=== PATIENT | male | born 1985 | race American Indian/Alaskan Native ===

== ENCOUNTER 2019-09-19 05:44 | Emergency (ER) | payer SELFPAY ==
[2019-09-19] MEDS ORDERED: ACETAMINOPHEN 325 MG TAB ONE (05:49)
[2019-09-19] MEDS ORDERED: ACETAMINOPHEN 325 MG TAB PO ONE (05:51)
--- NOTE | 2019-09-19 08:24 | Emergency Department Report ---
{null, - General Chief Complaint: Upper Respiratory Infection Stated Complaint: BODYACHE Time Seen by Provider: 09/19/19 07:41 Source: patient Mode of arrival: Ambulatory Limitations: No Limitations - History of Present Illness Initial Comments: 33-year-old -Greek male patient without significant past medical history presents with complaints of cough, congestion, runny nose, and generalized body aches/chills x yesterday. He states cough is productive of clear/white sputum. He denies any shortness of breath, chest pain, hemoptysis, brown sputum, history of smoking/asthma, diarrhea, or nausea/vomiting. He denies trying any [id number] medications for symptoms or known sick contacts. -: Sudden Consistency: constant Worsens With: nothing Associated Symptoms: fever, chills, myalgias, rhinorrhea, cough. denies: headache, sore throat, stiff neck, shortness of breath, abdominal pain, nausea, vomiting, diarrhea, rash - Related Data Previous Rx's Medication Instructions Recorded Last Taken Type Benzonatate 200 mg PO TID PRN #25 capsule 09/19/19 Unknown Rx Ibuprofen [Motrin 800 MG tab] 800 mg PO Q8HR PRN #21 tablet 09/19/19 Unknown Rx Oseltamivir [Tamiflu] 75 mg PO BID 5 Days #10 cap 09/19/19 Unknown Rx Allergies Allergy/AdvReac Type Severity Reaction Status Date / Time No Known Allergies Allergy Verified 09/19/19 05:50 ED Review of Systems ROS: Stated complaint: BODYACHE Other details as noted in HPI Constitutional: chills, fever, malaise Eyes: denies: vision change ENT: denies: throat pain Respiratory: cough. denies: shortness of breath Cardiovascular: denies: chest pain Endocrine: denies: excessive sweating Gastrointestinal: denies: abdominal pain, nausea, vomiting, diarrhea, constipation Genitourinary: denies: dysuria, frequency, hematuria Musculoskeletal: denies: back pain Skin: denies: rash, lesions, change in color Neurological: denies: headache, weakness, numbness, paresthesias ED Past Medical Hx - Past Medical History Previous Medical History?: No - Surgical History Past Surgical History?: No - Social History Smoking Status: Never Smoker Substance Use Type: None - Medications Home Medications: Home Medications Medication Instructions Recorded Confirmed Last Taken Type Benzonatate 200 mg PO TID PRN #25 capsule 09/19/19 Unknown Rx Ibuprofen [Motrin 800 MG tab] 800 mg PO Q8HR PRN #21 tablet 09/19/19 Unknown Rx Oseltamivir [Tamiflu] 75 mg PO BID 5 Days #10 cap 09/19/19 Unknown Rx ED Physical Exam - General Limitations: No Limitations General appearance: alert, in no apparent distress - Head Head exam: Present: atraumatic, normocephalic - Eye Eye exam: Present: normal appearance - ENT ENT exam: Present: normal exam, mucous membranes moist - Neck Neck exam: Present: normal inspection - Respiratory Respiratory exam: Present: normal lung sounds bilaterally. Absent: respiratory distress, wheezes, rales, rhonchi, chest wall tenderness, accessory muscle use, decreased breath sounds - Cardiovascular Cardiovascular Exam: Present: regular rate, normal rhythm. Absent: systolic murmur, diastolic murmur, rubs, gallop - GI/Abdominal GI/Abdominal exam: Present: soft. Absent: distended, tenderness - Extremities Exam Extremities exam: Present: normal inspection - Back Exam Back exam: Present: normal inspection - Neurological Exam Neurological exam: Present: alert, oriented X3 - Psychiatric Psychiatric exam: Present: normal affect, normal mood - Skin Skin exam: Present: warm, dry, intact, normal color. Absent: rash ED Course Vital Signs 09/19/19 09/19/19 05:50 08:36 Temperature 100.4 F H Pulse Rate 88 85 Respiratory 18 Rate Blood Pressure 144/93 Blood Pressure 135/92 [Right] O2 Sat by Pulse 95 96 Oximetry ED Medical Decision Making - Lab Data Lab Results 09/19/19 Range/Units Unknown Influenza A (Rapid) Positive A (Negative) Influenza B (Rapid) Negative (Negative) - Medical Decision Making 33-year-old male presents with flulike symptoms starting yesterday. Physical exam is negative for acute findings and his lungs are clear to auscultation bilaterally. Initial temperature upon arrival was 100.4 and is now 98.2. After receiving 650 mg of Tylenol. His rapid flu test is positive for Flu A. Patient is nontoxic-appearing and stable for discharge home. Tamiflu prescription given. Recommend follow-up with primary care provider within 5 to 7 days. Discussed detailed return precautions with patient who verbalizes understanding. Critical care attestation.: If time is entered above; I have spent that time in minutes in the direct care of this critically ill patient, excluding procedure time. ED Disposition Clinical Impression: Influenza A Disposition: DC-01 TO HOME OR SELFCARE Is pt being admited?: No Condition: Stable Instructions: Influenza (ED) Prescriptions: Benzonatate 200 mg PO TID PRN #25 capsule PRN Reason: Cough Ibuprofen [Motrin 800 MG tab] 800 mg PO Q8HR PRN #21 tablet PRN Reason: fever/bodyaches Oseltamivir [Tamiflu] 75 mg PO BID 5 Days #10 cap Referrals: [facility] [Provider Group] - 7-10 days Forms: Work/School Release Form(ED) }
[2019-09-19 08:37] VITALS: BP 144/93
== END 2019-09-19 08:38 | disposition home or self-care (01) ==
LOC: ED 05:44
DX: J10.1 Influenza due to other identified influenza virus with other respiratory manifestations (principal); Z79.1 Long term (current) use of non-steroidal anti-inflammatories (NSAID); Z79.899 Other long term (current) drug therapy
CPT/HCPCS: 87400

== ENCOUNTER 2020-08-07 17:12 | Emergency (ER) | payer BC ==
[2020-08-07 17:20] VITALS: BP 136/89
[2020-08-07] MEDS ORDERED: IBUPROFEN 600 MG TAB PO ONE (17:28)
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
== END 2020-08-07 18:40 | disposition home or self-care (01) ==
LOC: ED 17:12
DX: Z79.1 Long term (current) use of non-steroidal anti-inflammatories (NSAID) (principal); S93.602A Unspecified sprain of left foot, initial encounter; Z79.899 Other long term (current) drug therapy; S39.012A Strain of muscle, fascia and tendon of lower back, initial encounter; V49.49XA Driver injured in collision with other motor vehicles in traffic accident, initial encounter; Y93.89 Activity, other specified; Y92.410 Unspecified street and highway as the place of occurrence of the external cause; Y99.8 Other external cause status
CPT/HCPCS: 72100

== ENCOUNTER 2021-02-20 08:18 | Emergency (ER) | payer BC, OTHER ==
[2021-02-20 08:53] LABS: Eosinophils % (Auto) 0.1 % (0.0-4.3); Hematocrit 49.7 % (35.5-45.6); Hemoglobin 17.2 gm/dl (11.8-15.2); Lymphocytes # (Auto) 1.2 K/mm3 (1.2-5.4); Lymphocytes % (Auto) 25.9 % (13.4-35.0); Mean Corpuscular HGB Conc 35 % (32-34); Mean Corpuscular Volume 85 fl (84-94); Monocytes # (Auto) 0.6 K/mm3 (0.0-0.8); Red Blood Count 5.82 M/mm3 (3.65-5.03); Red Cell Distribution Width 13.6 % (13.2-15.2)
[2021-02-20] MEDS ORDERED: LACTATED RINGERS 1,000 ML IV ONE (09:03)
[2021-02-20] MEDS ORDERED: MORPHINE 4 MG/1 ML INJ IV ONE (09:03)
--- NOTE | 2021-02-20 09:07 | Emergency Department Report ---
ED General Adult HPI - General Chief complaint: Abdominal Pain Stated complaint: abd pains Time Seen by Provider: 02/20/21 09:02 Source: patient Mode of arrival: Ambulatory Limitations: No Limitations - History of Present Illness Initial comments: 35-year-old male without significant past medical history presenting for evaluation of lower abdominal pain gradual onset over the past week associated with nausea and vomiting. Also reports some diarrhea. Denies fever. No prior history of similar symptoms. Pain seems to be worse below the umbilicus. Rates it as moderate to severe nothing makes it better or worse. Severity scale (0 -10): 10 - Related Data Previous Rx's Medication Instructions Recorded Last Taken Type Ibuprofen [Motrin 800 MG tab] 800 mg PO Q8HR PRN #21 tablet 08/07/20 Unknown Rx methOCARBAMOL [Robaxin TAB] 750 mg PO Q8H PRN #30 tablet 08/07/20 Unknown Rx DOXYCYCLINE Hyclate [Vibramycin 100 mg PO Q12HR #20 capsule 02/20/21 Unknown Rx CAP] Hyoscyamine Subl [Levsin Sl 0.125 0.125 mg SL Q6HR PRN #20 tab 02/20/21 Unknown Rx TAB] Promethazine [Phenergan] 25 mg PO Q6HR PRN #20 tab 02/20/21 Unknown Rx Allergies Allergy/AdvReac Type Severity Reaction Status Date / Time No Known Allergies Allergy Verified 08/07/20 17:17 ED Review of Systems ROS: Stated complaint: abd pains Other details as noted in HPI Comment: All other systems reviewed and negative Gastrointestinal: as per HPI ED Past Medical Hx - Past Medical History Previous Medical History?: No - Surgical History Past Surgical History?: No - Social History Smoking Status: Never Smoker Substance Use Type: None - Medications Home Medications: Home Medications Medication Instructions Recorded Confirmed Last Taken Type Ibuprofen [Motrin 800 MG tab] 800 mg PO Q8HR PRN #21 tablet 08/07/20 Unknown Rx methOCARBAMOL [Robaxin TAB] 750 mg PO Q8H PRN #30 tablet 08/07/20 Unknown Rx DOXYCYCLINE Hyclate [Vibramycin 100 mg PO Q12HR #20 capsule 02/20/21 Unknown Rx CAP] Hyoscyamine Subl [Levsin Sl 0.125 0.125 mg SL Q6HR PRN #20 tab 02/20/21 Unknown Rx TAB] Promethazine [Phenergan] 25 mg PO Q6HR PRN #20 tab 02/20/21 Unknown Rx ED Physical Exam - General Limitations: No Limitations General appearance: alert, in no apparent distress - Head Head exam: Present: atraumatic, normocephalic - Eye Eye exam: Present: normal appearance - ENT ENT exam: Present: mucous membranes moist - Neck Neck exam: Present: normal inspection - Respiratory Respiratory exam: Present: normal lung sounds bilaterally. Absent: respiratory distress - Cardiovascular Cardiovascular Exam: Present: regular rate, normal rhythm. Absent: systolic murmur, diastolic murmur, rubs, gallop - GI/Abdominal GI/Abdominal exam: Present: soft, tenderness (Right lower left lower quadrants and periumbilical region), normal bowel sounds. Absent: guarding, rebound - Rectal Rectal exam: Present: deferred - Extremities Exam Extremities exam: Present: normal inspection - Back Exam Back exam: Present: normal inspection - Neurological Exam Neurological exam: Present: alert, oriented X3 - Psychiatric Psychiatric exam: Present: normal affect, normal mood - Skin Skin exam: Present: warm, dry, intact, normal color. Absent: rash ED Course Vital Signs 02/20/21 02/20/21 08:23 09:31 Temperature 99.3 F Pulse Rate 88 Respiratory 18 16 Rate Blood Pressure 116/80 [Right] O2 Sat by Pulse 98 Oximetry ED Medical Decision Making - Lab Data Result diagrams: 02/20/21 08:33 02/20/21 08:33 - Radiology Data Radiology results: report reviewed No acute process within the abdomen or pelvis on CT scan however there is multifocal pneumonia in the lung bases - Medical Decision Making Patient presents for evaluation of lower abdominal pain over the past week associate with nausea vomiting and diarrhea. On my exam well-appearing nontoxic no distress normal heart and lungs, lower abdominal tenderness diffusely. Differentials include colitis diverticulitis appendicitis. Labs and CT will be obtained. Patient given morphine Zofran and IV fluids. Labs are fairly stable, CT shows no acute process in the abdomen but does suggest multifocal pneumonia, on further questioning the patient does admit to having a lot of coughing over the past few days. Query COVID-19. Recommend getting tested outpatient, isolating is appropriate and will prescribe antibiotics to cover for community-acquired pneumonia. Return precautions given. Vital signs stable today with O2 98% on room air. - Differential Diagnosis Colitis diverticulitis appendicitis Critical care attestation.: If time is entered above; I have spent that time in minutes in the direct care of this critically ill patient, excluding procedure time. ED Disposition Clinical Impression: Multifocal pneumonia Disposition: - TO HOME OR SELFCARE Is pt being admited?: No Condition: Good Instructions: Bacterial Pneumonia (ED), Community-Acquired Pneumonia, Adult Prescriptions: Hyoscyamine Subl [Levsin Sl 0.125 TAB] 0.125 mg SL Q6HR PRN #20 tab PRN Reason: abd cramps Promethazine [Phenergan] 25 mg PO Q6HR PRN #20 tab PRN Reason: Nausea DOXYCYCLINE Hyclate [Vibramycin CAP] 100 mg PO Q12HR #20 capsule Referrals: PRIMARY CARE, [Primary Care Provider] - 3-5 Days Time of Disposition: 11:49
[2021-02-20 09:08] LABS: Platelet Count 97 K/mm3 (140-440)
[2021-02-20 09:20] LABS: Alanine Aminotransferase 70 units/L (7-56); Albumin 4.1 g/dL (3.9-5); BUN/Creatinine Ratio 10; Blood Urea Nitrogen 10 mg/dL (9-20); Calcium 9.2 mg/dL (8.4-10.2); Hemolysis Index 5
[2021-02-20 09:29] LABS: Bacteria,Urine 1+ /HPF (Negative); Bilirubin,Urine NEG (Negative); Blood,Urine MOD (Negative); Color,Urine Amber (Yellow); Mucus,Urine 1+ /HPF; Urobilinogen,Urine < 2.0 mg/dL (<2.0)
[2021-02-20] MEDS: ONDANSETRON 4 MG/2 ML INJ IV ONE (09:31)
--- NOTE | 2021-02-20 11:40 | Cat Scan Report ---
CT abdomen pelvis w con INDICATION / CLINICAL INFORMATION: LLQ, RLQ pain. TECHNIQUE: Axial CT images were obtained through the abdomen and pelvis after IV contrast. All CT sc ans at this location are performed using CT dose reduction for ALARA by means of automated exposure c ontrol. COMPARISON: None available. FINDINGS: LOWER CHEST: Multifocal patchy areas of airspace consolidation within the lung bases. LIVER: No significant abnormality GALLBLADDER/BILIARY TREE: No significant abnormality PANCREAS: No significant abnormality SPLEEN: No significant abnormality ADRENALS: No significant abnormality KIDNEYS / URETER: No significant abnormality URINARY BLADDER: No significant abnormality REPRODUCTIVE ORGANS: No significant abnormality STOMACH / BOWEL: No significant abnormality. The appendix is normal in caliber. LYMPH NODES: No significant adenopathy. VASCULATURE: No significant abnormality. OTHER: No free air, free fluid, or focal fluid collection is identified. SKELETAL SYSTEM: Multilevel thoracolumbar spondylosis. No acute osseous abnormality. IMPRESSION: 1. Multifocal patchy airspace disease within the lungs, most consistent with pneumonia. 2. No acute abnormality of the abdomen or pelvis. Signer Name: Doug Razo MD Signed: 02/20/2021 11:35 AM Workstation Name: [id number]
[2021-02-20] MEDS ORDERED: HYOSCYAMINE SUBL 0.125 MG TAB SL ONE (11:50)
[2021-02-20 12:11] VITALS: BP 119/79
== END 2021-02-20 12:20 | disposition home or self-care (01) ==
LOC: ED 08:18
DX: J18.9 Pneumonia, unspecified organism (principal); R11.2 Nausea with vomiting, unspecified; R19.7 Diarrhea, unspecified
CPT/HCPCS: 36415; 74177; 80053; 81001; 83690; 85025; 96361; 96374; 96375; 99284; J2270; J2405; J7120; Q9967

== ENCOUNTER 2021-04-08 18:41 | Emergency (ER) | payer BC ==
[2021-04-08 19:35] VITALS: BP 137/87
--- NOTE | 2021-04-08 20:05 | Emergency Department Report ---
- General Chief complaint: Skin/Abscess/Foreign Body Stated complaint: BOIL UNDER ARMS Time Seen by Provider: 04/08/21 19:59 Source: patient Mode of arrival: Ambulatory Limitations: No Limitations - History of Present Illness Initial comments: Patient is a 35-year-old male presents emergency room with complaints of abscesses to the bilateral axilla that began approximately 1 to 2 weeks ago. Patient states that last month he had to have an I&D performed. He states that they have been draining. He denies any fever, chills, nausea, vomiting, diarrhea, numbness, weakness. Patient denies any past medical history. No allergies to medications. - Related Data Previous Rx's Medication Instructions Recorded Last Taken Type Ibuprofen [Motrin 800 MG tab] 800 mg PO Q8HR PRN #21 tablet 08/07/20 Unknown Rx methOCARBAMOL [Robaxin TAB] 750 mg PO Q8H PRN #30 tablet 08/07/20 Unknown Rx DOXYCYCLINE Hyclate [Vibramycin 100 mg PO Q12HR #20 capsule 02/20/21 Unknown Rx CAP] Hyoscyamine Subl [Levsin Sl 0.125 0.125 mg SL Q6HR PRN #20 tab 02/20/21 Unknown Rx TAB] Promethazine [Phenergan] 25 mg PO Q6HR PRN #20 tab 02/20/21 Unknown Rx Chlorhexidine Gluconate [Hibiclens] 15 ml TP DAILY #1 bottle 04/08/21 Unknown Rx Mupirocin [Bactroban 2% OINT] 1 applic TP TID #1 tube 04/08/21 Unknown Rx Sulfamethoxazole/Trimethoprim 1 each PO BID 7 Days #14 tablet 04/08/21 Unknown Rx [Bactrim DS TAB] Allergies Allergy/AdvReac Type Severity Reaction Status Date / Time No Known Allergies Allergy Verified 08/07/20 17:17 Abscess Boil HPI - HPI Chief Complaint: Skin/Abscess/Foreign Body Stated Complaint: BOIL UNDER ARMS Time Seen by Provider: 04/08/21 19:59 Home Medications: Previous Rx's Medication Instructions Recorded Last Taken Type Ibuprofen [Motrin 800 MG tab] 800 mg PO Q8HR PRN #21 tablet 08/07/20 Unknown Rx methOCARBAMOL [Robaxin TAB] 750 mg PO Q8H PRN #30 tablet 08/07/20 Unknown Rx DOXYCYCLINE Hyclate [Vibramycin 100 mg PO Q12HR #20 capsule 02/20/21 Unknown Rx CAP] Hyoscyamine Subl [Levsin Sl 0.125 0.125 mg SL Q6HR PRN #20 tab 02/20/21 Unknown Rx TAB] Promethazine [Phenergan] 25 mg PO Q6HR PRN #20 tab 02/20/21 Unknown Rx Chlorhexidine Gluconate [Hibiclens] 15 ml TP DAILY #1 bottle 04/08/21 Unknown Rx Mupirocin [Bactroban 2% OINT] 1 applic TP TID #1 tube 04/08/21 Unknown Rx Sulfamethoxazole/Trimethoprim 1 each PO BID 7 Days #14 tablet 04/08/21 Unknown Rx [Bactrim DS TAB] Allergies/Adverse Reactions: Allergies Allergy/AdvReac Type Severity Reaction Status Date / Time No Known Allergies Allergy Verified 08/07/20 17:17 ED Review of Systems ROS: Stated complaint: BOIL UNDER ARMS Other details as noted in HPI Comment: All other systems reviewed and negative ED Past Medical Hx - Past Medical History Previous Medical History?: No - Surgical History Past Surgical History?: No - Social History Smoking Status: Never Smoker Substance Use Type: None - Medications Home Medications: Home Medications Medication Instructions Recorded Confirmed Last Taken Type Ibuprofen [Motrin 800 MG tab] 800 mg PO Q8HR PRN #21 tablet 08/07/20 Unknown Rx methOCARBAMOL [Robaxin TAB] 750 mg PO Q8H PRN #30 tablet 08/07/20 Unknown Rx DOXYCYCLINE Hyclate [Vibramycin 100 mg PO Q12HR #20 capsule 02/20/21 Unknown Rx CAP] Hyoscyamine Subl [Levsin Sl 0.125 0.125 mg SL Q6HR PRN #20 tab 02/20/21 Unknown Rx TAB] Promethazine [Phenergan] 25 mg PO Q6HR PRN #20 tab 02/20/21 Unknown Rx Chlorhexidine Gluconate [Hibiclens] 15 ml TP DAILY #1 bottle 04/08/21 Unknown Rx Mupirocin [Bactroban 2% OINT] 1 applic TP TID #1 tube 04/08/21 Unknown Rx Sulfamethoxazole/Trimethoprim 1 each PO BID 7 Days #14 tablet 04/08/21 Unknown Rx [Bactrim DS TAB] ED Physical Exam - General Limitations: No Limitations General appearance: alert, in no apparent distress - Head Head exam: Present: atraumatic, normocephalic - Eye Eye exam: Present: normal appearance - ENT ENT exam: Present: mucous membranes moist - Neurological Exam Neurological exam: Present: alert, oriented X3 - Psychiatric Psychiatric exam: Present: normal affect, normal mood - Skin Skin exam: Present: warm, dry, other (multiple small 0.5 cm pustules present to the left axilla, there is a 1 cm opening, no active drainage, there is a 3 cm of induration to the left axilla, there is multiple small pustules to the right axillary region, there is a 2 cm area of induration with a surrounding 3 cm area of erythema) ED Course Vital Signs 04/08/21 19:28 Temperature 99.1 F Pulse Rate 62 Respiratory 18 Rate Blood Pressure 137/87 O2 Sat by Pulse 99 Oximetry ED Medical Decision Making - Medical Decision Making Patient is a 35-year-old male presents emergency room with complaints of abscesses to the bilateral axilla that began approximately 1 to 2 weeks ago. Patient states that last month he had to have an I&D performed. He states that they have been draining. He denies any fever, chills, nausea, vomiting, diarrhea, numbness, weakness. Patient denies any past medical history. No allergies to medications. Vitals are normal. On exam:multiple small 0.5 cm pustules present to the left axilla, there is a 1 cm opening, no active drainag e, there is a 3 cm of induration to the left axilla, there is multiple small pustules to the right axillary region, there is a 2 cm area of induration with a surrounding 3 cm area of erythema. No drainable abscess at this time. Examination could be consistent with hydronidus suppurativa. Patient given prescription for medication. Discussed the importance of outpatient primary care and dermatology follow-up. Discussed return precautions. Advised patient Please use medication as prescribed. Please do warm compresses 2-3 times a day. Follow-up with your primary care doctor. Follow-up with a automotive repair technician. Return to emergency room for any new or worsening symptoms. Critical care attestation.: If time is entered above; I have spent that time in minutes in the direct care of this critically ill patient, excluding procedure time. ED Disposition Clinical Impression: Abscess Cellulitis Qualifiers: Site of cellulitis: extremity Site of cellulitis of extremity: axilla Laterality: right Qualified Code(s): L03.111 - Cellulitis of right axilla Disposition: 01 HOME / SELF CARE / HOMELESS Is pt being admited?: No Does the pt Need Aspirin: No Condition: Stable Instructions: Skin Abscess, Cellulitis, Adult, Hidradenitis Suppurativa Additional Instructions: Please use medication as prescribed. Please do warm compresses 2-3 times a day. Follow-up with your primary care doctor. Follow-up with a automotive repair technician. Return to emergency room for any new or worsening symptoms. automotive repair technician: Spencer Reese [facility] [place], [place] [address] [place] [address] Thu Redd MD [facility] [place], [place] Address: [address] [place] [address] Prescriptions: Sulfamethoxazole/Trimethoprim [Bactrim DS TAB] 1 each PO BID 7 Days #14 tablet Mupirocin [Bactroban 2% OINT] 1 applic TP TID #1 tube Chlorhexidine Gluconate [Hibiclens] 15 ml TP DAILY #1 bottle Referrals: ADRIANNA HOROWITZ MD [Staff Physician] - 3-5 Days [facility] [Provider Group] - 3-5 Days TIMOTHY BELTRAN MD [Staff Physician] - 3-5 Days Time of Disposition: 20:03 Print Language: ITALIAN
== END 2021-04-08 20:40 | disposition home or self-care (01) ==
LOC: ED 18:41
DX: L02.411 Cutaneous abscess of right axilla (principal); L02.412 Cutaneous abscess of left axilla; L03.111 Cellulitis of right axilla; L03.112 Cellulitis of left axilla
CPT/HCPCS: 99282

== ENCOUNTER 2022-01-12 12:39 | Emergency (ER) | payer BC | END 2022-01-12 13:00 | disposition left against medical advice (07) | LOC: ED 12:39 | DX: M54.9 Dorsalgia, unspecified (principal); Z53.21 Procedure and treatment not carried out due to patient leaving prior to being seen by health care provider ==